=== PATIENT | female | born 1995 | race African-American/Black ===

== ENCOUNTER 2018-07-10 17:24 | Emergency (ER) | payer SELFPAY ==
[~2018-07-10] VITALS: Ht 154.9 cm; Wt 53.2 kg
[2018-07-10 17:41] VITALS: Ht 154.9 cm; Wt 53.2 kg
[2018-07-10 19:44] VITALS: BP 95/49
== END 2018-07-10 21:01 | disposition left against medical advice (07) ==
LOC: ED 17:24
DX: Z53.21 Procedure and treatment not carried out due to patient leaving prior to being seen by health care provider (principal)